=== PATIENT | male | born 1950 | race Caucasian/White ===

== ENCOUNTER → 2019-09-06 | Outpatient (CLI) | payer OTHER, MEDICARE ==
[~2019-09-06] MED LIST: ASA81BEC PO; AVAPRO300 MG PO; CHILDREN'S ZYRT10 M1 PO; GLUCOSAMINE-CH1 EA30 PO; HYDROCHLOROTHIA25 M2 PO; MULTAQ 400 MG400 MG PO; NEURONTIN 300M300 M2 PO; SIMVASTATIN80 MG PO; TOPROL XL50 MG PO; XARELTO20 MG PO
== END ==
LOC: SJCVCIMAG 10:34
PROVIDERS: ATTEND Internal Medicine Cardiovascular Disease
DX: Z01.818 Encounter for other preprocedural examination (principal); R94.31 Abnormal electrocardiogram [ECG] [EKG]; R00.0 Tachycardia, unspecified; I08.3 Combined rheumatic disorders of mitral, aortic and tricuspid valves; I11.9 Hypertensive heart disease without heart failure; I48.0 Paroxysmal atrial fibrillation; I25.10 Atherosclerotic heart disease of native coronary artery without angina pectoris; E78.00 Pure hypercholesterolemia, unspecified; Z82.49 Family history of ischemic heart disease and other diseases of the circulatory system

== ENCOUNTER → 2019-09-08 | Outpatient (CLI) | payer OTHER, MEDICARE | LOC: SJCVCIMAG 08:55 | DX: Z01.818 Encounter for other preprocedural examination (principal); R94.31 Abnormal electrocardiogram [ECG] [EKG]; I48.0 Paroxysmal atrial fibrillation; I25.10 Atherosclerotic heart disease of native coronary artery without angina pectoris; I10 Essential (primary) hypertension; E78.5 Hyperlipidemia, unspecified; Z79.899 Other long term (current) drug therapy ==

== ENCOUNTER → 2019-11-04 | Outpatient (CLI) | payer OTHER, MEDICARE | LOC: SJCVC 09:43 | DX: R94.31 Abnormal electrocardiogram [ECG] [EKG] (principal); I25.10 Atherosclerotic heart disease of native coronary artery without angina pectoris; I48.0 Paroxysmal atrial fibrillation; E78.00 Pure hypercholesterolemia, unspecified; I10 Essential (primary) hypertension; I35.0 Nonrheumatic aortic (valve) stenosis; D68.59 Other primary thrombophilia; G47.30 Sleep apnea, unspecified; Z82.49 Family history of ischemic heart disease and other diseases of the circulatory system; Z79.82 Long term (current) use of aspirin; Z79.899 Other long term (current) drug therapy ==

== ENCOUNTER → 2019-11-22 | Outpatient (CLI) | payer OTHER, MEDICARE | LOC: LAB 08:00 | PROVIDERS: ATTEND Internal Medicine Cardiovascular Disease | DX: Z01.812 Encounter for preprocedural laboratory examination (principal); Z11.59 Encounter for screening for other viral diseases ==

== ENCOUNTER → 2019-11-25 | Outpatient (CLI) | payer OTHER, MEDICARE ==
[~2019-11-25] VITALS: Ht 190.5 cm; Wt 133.8 kg
[2019-11-25 07:13] VITALS: BP 134/81
--- NOTE | 2019-11-25 08:57 | TEE ---
[facility] [address] [address] TRANSESOPHAGEAL ECHOCARDIOGRAM Name: FILIPE CARPIO [id number] Admission: 11/25/19 Attend Phys: Torrey Mckoy MD, Discharge: Date of : 54 Report #: [id number] THIS REPORT FOR: cc: Markos Mcknight MD, Kirk D. MD Lundgren, Craig H. MD [facility] ~ APPROVED REPORT Study performed: 11/25/2019 07:41:53 EXAM: Transesophageal Echocardiogram with Doppler and Cardioversion Patient Location: Out-Patient Status: routine BSA: 2.59 HR: 82 bpm BP: 155/96 mmHg Rhythm: Atrial Fibrillation Other Information Study Quality: Good Indications Atrial Fibrillation Cardioversion. History of previous cardioversion. Procedure After obtaining informed consent, patient underwent transesophageal echo in the [employer]. Type of Sedation : Conscious Sedation Sedation was achieved intravenously with: Versed (4) Fentanyl (100) Transesophageal probe was inserted and advanced into esophagus without difficulty by Torrey Mckoy MD. Echo enhancement indication: R/O Septal defect. Echo enhancement agent administered: Agitated Saline The ANGELA was performed without complications. Synchronized Cardioversion acheived with 120 then 200J Joules after 2 attempt(s). Rhythm following Synchronized Cardioversion: Normal Sinus Rhythm Throughout the procedure, the blood pressure, pulse oximetry, cardiac rhythm, and rate were monitored. The patient tolerated the procedure without adverse effects. Recovery [facility] [address] [address] TRANSESOPHAGEAL ECHOCARDIOGRAM Name: FILIPE CARPIO Room #: REG [facility] [id number] Admission: 11/25/19 Attend Phys: Torrey Mckoy, Discharge: Date of : 54 Report #: [id number] from conscious sedation was uneventful and vital signs were stable. Left Ventricle The left ventricle is normal size. There is normal LV segmental wall motion. Mild concentric left ventricular hypertrophy. Left ventricular systolic function is normal. LVEF is 50-55%. Right Ventricle The right ventricle is normal size. The right ventricular systolic function is normal. Atria Left atrium is moderately dilated. No thrombus is visualized in the left atrium or appendage. No shunting noted by contrast bubble injection. Right atrium is mildly dilated. Aortic Valve Aortic valve is mild to moderately calcified. Mild aortic regurgitation. Borderline mild aortic stenosis. (Valve area of 1.9cm per transthoracic echo done 09/2019) Mitral Valve The mitral valve is normal in structure. Mild to moderate mitral regurgitation. No evidence of mitral valve stenosis. Tricuspid Valve The tricuspid valve is normal in structure. Mild tricuspid regurgitation. Pulmonic Valve The pulmonary valve is normal in structure. Trace pulmonic regurgitation. Great Vessels The aortic root is normal in size. The ascending aorta is normal in size. IVC is normal in size and collapses >50% with inspiration. Pericardium There is no pericardial effusion. <Conclusion> Left ventricular systolic function is normal. There is normal LV segmental wall motion. LVEF is 50-55%. [facility] [address] TRANSESOPHAGEAL ECHOCARDIOGRAM Name: FILIPE CARPIO Room #: REG [facility]#: [id number] Admission: 11/25/19 Attend Phys: Torrey Mckoy, Discharge: Date of : 54 Report #: [id number] Left atrium is moderately dilated. No thrombus is visualized in the left atrium or appendage. No shunting noted by contrast bubble injection. Aortic valve is mild to moderately calcified. Mild aortic regurgitation, mild stenosis. Borderline mild aortic stenosis. (Valve area of 1.9cm per transthoracic echo done 09/2019) The mitral valve is normal in structure. Mild to moderate mitral regurgitation. There is no pericardial effusion. Successful cardioversion of atrial fibrillation to sinus rhythm following 2 biphasic synchronous joules shocks, 120, 200J. <ELECTRONICALLY SIGNED> By: Torrey Mckoy MD, FACC 11/25/1954 5 5 Torrey Mckoy MD, FACC /INF
== END | disposition home or self-care (01) ==
LOC: CATH 06:35
PROVIDERS: ATTEND Internal Medicine
DX: I48.91 Unspecified atrial fibrillation (principal); I08.3 Combined rheumatic disorders of mitral, aortic and tricuspid valves; I10 Essential (primary) hypertension; I25.10 Atherosclerotic heart disease of native coronary artery without angina pectoris; E78.5 Hyperlipidemia, unspecified; Z98.890 Other specified postprocedural states; Z79.899 Other long term (current) drug therapy; Z96.653 Presence of artificial knee joint, bilateral; Z79.82 Long term (current) use of aspirin

== ENCOUNTER → 2019-12-02 | Outpatient (CLI) | payer OTHER, MEDICARE | LOC: SJCVC 13:24 | PROVIDERS: ATTEND Internal Medicine Cardiovascular Disease | DX: R00.1 Bradycardia, unspecified (principal); I48.0 Paroxysmal atrial fibrillation; I10 Essential (primary) hypertension; D68.59 Other primary thrombophilia; E78.00 Pure hypercholesterolemia, unspecified; I25.10 Atherosclerotic heart disease of native coronary artery without angina pectoris; Z79.82 Long term (current) use of aspirin; Z79.899 Other long term (current) drug therapy; Z82.49 Family history of ischemic heart disease and other diseases of the circulatory system ==

== ENCOUNTER → 2020-03-15 | Outpatient (CLI) | payer OTHER, MEDICARE | LOC: SJCVC 14:29 | PROVIDERS: ATTEND Internal Medicine Cardiovascular Disease | DX: R94.31 Abnormal electrocardiogram [ECG] [EKG] (principal); I25.10 Atherosclerotic heart disease of native coronary artery without angina pectoris; I10 Essential (primary) hypertension; I48.0 Paroxysmal atrial fibrillation; E78.00 Pure hypercholesterolemia, unspecified; G47.30 Sleep apnea, unspecified; I35.0 Nonrheumatic aortic (valve) stenosis; Z82.49 Family history of ischemic heart disease and other diseases of the circulatory system; Z79.82 Long term (current) use of aspirin; Z79.899 Other long term (current) drug therapy ==

== ENCOUNTER → 2020-09-28 | Outpatient (CLI) | payer OTHER, MEDICARE | LOC: SJCVCIMAG 08:50 | PROVIDERS: ATTEND Internal Medicine Cardiovascular Disease | DX: R94.31 Abnormal electrocardiogram [ECG] [EKG] (principal); I08.8 Other rheumatic multiple valve diseases; I11.9 Hypertensive heart disease without heart failure; I25.10 Atherosclerotic heart disease of native coronary artery without angina pectoris; I48.0 Paroxysmal atrial fibrillation; E78.00 Pure hypercholesterolemia, unspecified; D68.59 Other primary thrombophilia; Z79.899 Other long term (current) drug therapy ==

== ENCOUNTER → 2021-05-11 | Outpatient (CLI) | payer OTHER, MEDICARE | END | disposition home or self-care (01) | LOC: SJCVC 10:38 | PROVIDERS: ATTEND Internal Medicine Cardiovascular Disease | DX: R94.31 Abnormal electrocardiogram [ECG] [EKG] (principal); I10 Essential (primary) hypertension; I48.0 Paroxysmal atrial fibrillation; I35.0 Nonrheumatic aortic (valve) stenosis; Z82.49 Family history of ischemic heart disease and other diseases of the circulatory system; I25.10 Atherosclerotic heart disease of native coronary artery without angina pectoris; E78.00 Pure hypercholesterolemia, unspecified; Z96.651 Presence of right artificial knee joint ==